=== PATIENT | male | born 1990 | race Caucasian/White ===

== ENCOUNTER 2018-03-16 07:38 | Emergency (ER) | payer OTHER ==
[~2018-03-16] VITALS: Ht 180.3 cm; Wt 100.0 kg
[2018-03-16 07:42] VITALS: BP 150/105
== END 2018-03-16 08:30 | disposition home or self-care (01) ==
LOC: ER 07:38
DX: J20.9 Acute bronchitis, unspecified (principal); Z59.0 Homelessness
CPT/HCPCS: 99281

== ENCOUNTER 2019-08-04 16:47 | Emergency (ER) | payer MEDICAID, OTHER ==
[~2019-08-04] VITALS: Ht 177.8 cm; Wt 95.5 kg
[2019-08-04 17:34] LABS: BASOPHILS % (AUTO) 0.1 % (0-1); EOSINOPHILS # (AUTO) 0.1 X10'3 (0-0.9); EOSINOPHILS % (AUTO) 1.3 % (0-6); HEMATOCRIT 47.8 % (42.0-52.0); HEMOGLOBIN 16.6 g/dl (14.0-17.9); LYMPHOCYTES # (AUTO) 2.2 X10'3 (1.1-4.8); LYMPHOCYTES % (AUTO) 24.1 % (21-51); MEAN CORPUSCULAR HEMOGLOBIN 31.5 PG (27.0-31.0); MEAN CORPUSCULAR HGB CONC 34.8 g/dL (33.0-36.5); MEAN CORPUSCULAR VOLUME 90.6 FL (78-98); MEAN PLATELET VOLUME 6.9 FL (7.4-10.4); MONOCYTES # (AUTO) 0.5 X10'3 (0-0.9); MONOCYTES % (AUTO) 4.9 % (2-12); NEUTROPHILS # (AUTO) 6.5 X10'3 (1.8-7.7); NEUTROPHILS % (AUTO) 69.6 % (42-75); PLATELET COUNT 235 X10'3 (140-440); RED BLOOD COUNT 5.27 X10'6 (4.70-6.10); RED CELL DISTRIBUTION WIDTH 12.8 % (11.5-14.5); WHITE BLOOD COUNT 9.3 X10'3 (4.5-11.0)
[2019-08-04 17:39] LABS: CLARITY,URINE CLEAR (Clear); COLOR,URINE YELLOW (Yellow); GLUCOSE, URINE NEGATIVE (Neg); KETONES,URINE TRACE mg/dl (Neg); LEUKOCYTE ESTERASE ,URINE NEGATIVE (Neg); NITRITES, URINE NEGATIVE (Neg); OCCULT BLOOD,URINE NEGATIVE (Neg); PROTEIN,URINE TRACE mg/dl (Neg); UROBILINOGEN,URINE 0.2 E.U/dL (0.2-1.0)
[2019-08-04 17:52] LABS: ALANINE AMINOTRANSFERASE 38 U/L (12-78); ALBUMIN 3.7 G/DL (3.4-5.0); ALBUMIN/GLOBULIN RATIO 1.3 (1.1-1.5); ALKALINE PHOSPHATASE 110 IU/L (46-116); ANION GAP 9 (8-16); ASPARTATE AMINO TRANSFERASE 22 U/L (10-37); BILIRUBIN,TOTAL 0.3 MG/DL (0.1-1.0); BLOOD UREA NITROGEN 8 MG/DL (7-18); BUN/CREATININE RATIO 6.6 (5.4-32.0); CHLORIDE 107 MMOL/L (99-107); CREATININE 1.21 MG/DL (0.60-1.10); GLUCOSE 95 MG/DL (70-104); LIPASE 212 U/L (73-393); MAGNESIUM 1.9 MG/DL (1.5-2.4); PHOSPHORUS 2.8 MG/DL (2.3-4.5); POTASSIUM 3.8 MMOL/L (3.5-5.1); SODIUM 142 MMOL/L (135-145); TOTAL CARBON DIOXIDE 26.1 MMOL/L (24-32); TOTAL PROTEIN 6.5 G/DL (6.4-8.2); eGFR 70 ML/MIN
[2019-08-04 17:55] LABS: CALCIUM 8.8 MG/DL (8.5-10.1)
[2019-08-04 17:56] LABS: UA COLLECTION TYPE CLN CATCH MIDSTREAM
[2019-08-04 17:57] LABS: MUCUS STRANDS MANY /LPF (Neg); SQUAMOUS EPITHELIAL CELL,UR FEW /LPF (FEW)
[2019-08-04 17:59] LABS: BACTERIA,URINE FEW /HPF (Neg); RBC,URINE 0-2 /HPF (0-2); SPERM FEW /HPF (NEGATIVE); WBC,URINE 0-4 /HPF (0-4)
[2019-08-04 18:00] LABS: YEAST FEW /HPF (NEGATIVE)
[2019-08-04 19:50] VITALS: BP 127/55
== END 2019-08-04 19:52 | disposition home or self-care (01) ==
LOC: ER 16:48
DX: E27.40 Unspecified adrenocortical insufficiency (principal); R42 Dizziness and giddiness; R11.0 Nausea; R53.83 Other fatigue; Z59.0 Homelessness
CPT/HCPCS: 36415; 80053; 81001; 83690; 83735; 84100; 84443; 85025; 93005; 99284

== ENCOUNTER 2019-08-08 18:45 | Emergency (ER) | payer MEDICAID, OTHER ==
[~2019-08-08] VITALS: Ht 177.8 cm; Wt 95.0 kg
[2019-08-08 18:53] VITALS: BP 127/75
[2019-08-08] MEDS ORDERED: acetaminophen 325mg tablet PO ONE (19:15)
[2019-08-08] MEDS ORDERED: ketorolac tromethamine 15mg/ml inj. IM ONE (19:15)
[2019-08-08] MEDS ORDERED: LORazepam 1 MG tablet PO ONE (19:15)
[2019-08-08] MEDS ORDERED: HYDR-3686 PO (19:18)
== END 2019-08-08 19:40 | disposition home or self-care (01) ==
LOC: ER 18:45
DX: M54.5 Low back pain (principal); F41.9 Anxiety disorder, unspecified; R42 Dizziness and giddiness; G89.29 Other chronic pain; Z59.0 Homelessness; Z79.899 Other long term (current) drug therapy
CPT/HCPCS: 96372; 99283; J1885